=== PATIENT | female | born 2000 | race Caucasian/White ===

== ENCOUNTER 2020-11-26 18:01 | Inpatient (IN) ==
[2020-11-26 18:57] LABS: Bacteria,Urine Occasional /HPF (Few); Bilirubin,Urine Negative (Negative); Blood, Urine Large mg/dL (Negative); Glucose,Urine (UA) Negative (Negative); Ketones,Urine Negative (Negative); Mucus,Urine Occasional /LPF (Occasional); Nitrite,Urine Negative (Negative); Protein,Urine Negative; RBC,Urine 4 /HPF (0-4); Squamous Epithelial Cell,Urine Few /HPF (0-10); Urine Appearance Slightly Hazy (Clear); Urine Color Yellow (Yellow); Urine Urobilinogen < 2.0 EU/DL (0.2-1.0); WBC,Urine 18 /HPF (0-6)
[2020-11-26] MEDS ORDERED: ceFAZolin 1,000 MG in SYRINGE 1 EACH IV ONE (19:45)
[2020-11-26] MEDS ORDERED: LACTATED RINGERS 1,000 ML IV ONE (19:45)
[2020-11-26] MEDS ORDERED: MEPERIDINE 50 MG/1 ML VIAL IV ONE (20:00)
[2020-11-26] MEDS ORDERED: ACETAMINOPHEN 325 MG TABLET PO PRN (21:38)
[2020-11-26] MEDS ORDERED: LACTATED RINGERS 500 ML IV PRN (21:38)
[2020-11-26] MEDS ORDERED: ONDANSETRON 4 MG/2 ML VIAL IV PRN (21:38)
[2020-11-26] MEDS ORDERED: BUTORPHANOL 2 MG/ML VIAL IV PRN (21:38)
[2020-11-26 22:01] LABS: Basophils % 0.3 % (0.0-0.8); Eosinophils % 0.3 % (0.00-10.9); Hematocrit 32.8 VOL% (35.7-47.0); Hemoglobin 10.1 GM/DL (12.0-16.0); Immature Granulocytes % 0.3 %; Immature Granulocytes Absolute 0.02 #; Lymphocytes # 1.7 10*3/uL (1.4-4.0); Lymphocytes % 21.3 % (21.3-54.2); Mean Corpuscular HGB Conc 30.8 GM/DL (32-36); Mean Corpuscular Volume 78.7 FL (87-102); Mean Platelet Volume 11.6 FL (9.6-12.0); Monocytes % 10.2 % (1.7-12.7); Neutrophils % 67.6 % (38.7-73.9); Platelet Count 213 T/CUMM (130-400); Red Blood Count 4.17 MC/CUMM (3.8-5.5); Red Cell Distribution Width 16.4 % (9.3-17.3); White Blood Count 7.9 T/CUMM (4-12)
[2020-11-26 22:22] LABS: Albumin 2.7 G/DL (3.4-5.0); Bilirubin,Total 0.6 MG/DL (0.2-1.0); Calcium 8.5 MG/DL (8.5-10.1); Osmolality,Calculated 271.5 MOS/KG (273-304); Potassium 3.5 MMOL/L (3.5-5.1); Total Protein 7.1 G/DL (6.4-8.2)
[2020-11-27] MEDS: MEPERIDINE 50 MG/1 ML VIAL IV PRN ×2 (00:45→04:02)
[2020-11-27] MEDS: LACTATED RINGERS 1,000 ML IV SCH ×2 (01:05→05:49)
[2020-11-27] MEDS ORDERED: PROMETHAZINE 25 MG/1 ML VIAL IM ONE (03:46)
[2020-11-27] MEDS ORDERED: ePHEDrine 50 MG/ML VIAL IV PRN (03:46)
[2020-11-27] MEDS ORDERED: FAMOTIDINE 20 MG/2 ML VIAL IV ONE (03:46)
[2020-11-27] MEDS ORDERED: ONDANSETRON 4 MG/2 ML VIAL IV ONE (03:46)
[2020-11-27] MEDS ORDERED: NALOXONE 0.4 MG/ML VIAL IV PRN (03:46)
[2020-11-27] MEDS ORDERED: diphenhydrAMINE 50 MG/1 ML VIAL IV PRN ×2 (03:46)
[2020-11-27] MEDS ORDERED: LACTATED RINGERS 1,000 ML IV ONE (03:46)
[2020-11-27] MEDS ORDERED: CITRIC ACID/SODIUM CITRATE 30 ML UDCUP PO ONE (03:46)
[2020-11-27] MEDS ORDERED: hydrOXYzine HCL 25 MG/1 ML VIAL IM PRN (03:46)
[2020-11-27] MEDS ORDERED: fentaNYL 2 MCG/ROPIV 0.2% EPID 100 ML EPIDURAL SCH (04:00)
[2020-11-27 05:24] LABS: Bacteria,Urine Occasional /HPF (Few); Bilirubin,Urine Negative (Negative); Blood, Urine Negative (Negative); Glucose,Urine (UA) Negative (Negative); Ketones,Urine 20 mg/dL (Negative); Mucus,Urine Occasional /LPF (Occasional); Nitrite,Urine Negative (Negative); Protein,Urine Negative; Urine Appearance CLEAR (Clear); Urine Color Straw (Yellow); Urine Specific Gravity 1.006 (1.001-1.035); Urine Urobilinogen < 2.0 EU/DL (0.2-1.0); WBC,Urine <1 /HPF (0-6)
[2020-11-27] MEDS ORDERED: OXYTOCIN/LR 20 UNIT/1,000 ML BAG IV SCH (06:00)
[2020-11-27] MEDS ORDERED: TRANEXAMIC ACID 1,000 MG/10 ML VIAL ONE (07:39)
[2020-11-27] MEDS ORDERED: miSOPROStoL 200 MCG TABLET ONE (07:39)
[2020-11-27] MEDS ORDERED: OXYTOCIN/LR 20 UNIT/1,000 ML BAG IV ONE ×2 (07:40→08:29)
[2020-11-27] MEDS ORDERED: METHYLERGONOVINE 0.2 MG/1 ML AMP ONE (07:40)
[2020-11-27] MEDS ORDERED: CARBOPROST TROMETHAMINE 250 MCG/ML AMP IM ONE (07:40)
[2020-11-27] MEDS ORDERED: SODIUM CHLORIDE 0.9% 0 ML IV ONE (07:41)
[2020-11-27 08:00] LABS: Cord Arterial Blood HCO3 18.9 MMOL/L
[2020-11-27 08:01] LABS: Cord Venous Blood HCO3 22.6 MMOL/L; Cord Venous Blood PCO2 46.1 MMHG; Cord Venous Blood PO2 22.8 MMHG
[2020-11-27] MEDS ORDERED: HYDROCORTISONE 2.5% RECTAL CREAM 30 GM TUBE TOP PRN (08:29)
[2020-11-27] MEDS ORDERED: BISACODYL 10 MG SUPP RECTAL PRN (08:29)
[2020-11-27] MEDS ORDERED: RHO(D) IMMUNE GLOBULIN 300 MCG SYRINGE IM ONE (08:29)
[2020-11-27] MEDS ORDERED: WITCH HAZEL PADS 100/JAR TOP PRN (08:29)
[2020-11-27] MEDS ORDERED: LANOLIN 50% CREAM 0.3 OZ TUBE TOP PRN (08:29)
[2020-11-27] MEDS ORDERED: BENZOCAINE 20%/MENTHOL 0.5% SPRAY 56 GM CAN TOP PRN (08:29)
[2020-11-27] MEDS ORDERED: ONDANSETRON 4 MG/2 ML VIAL IV PRN (08:29)
[2020-11-27] MEDS ORDERED: MEASLES/MUMPS/RUBELLA VACCINE 0.5 ML VIAL SUBCUT ONE (08:29)
[2020-11-27] MEDS ORDERED: DIPH/TET/ACEL PERT BOOSTER VACCINE 0.5 ML VIAL IM ONE (08:29)
[2020-11-27] MEDS ORDERED: ACETAMINOPHEN 325 MG TABLET PO PRN (08:29)
[2020-11-27] MEDS ORDERED: oxyCODONE/ACETAMINOPHEN 5-325 MG TABLET PO PRN (08:29)
[2020-11-27] MEDS: IBUPROFEN 800 MG TABLET PO PRN ×2 (15:31→21:13)
[2020-11-27] MEDS: oxyCODONE/ACETAMINOPHEN 5-325 MG TABLET PO PRN ×2 (15:32→21:14)
[2020-11-27] MEDS: DOCUSATE SODIUM 100 MG CAPSULE PO SCH (21:17)
[2020-11-28 06:21] LABS: Basophils # 0.1 10*3/uL (0.0-0.2); Basophils % 0.5 % (0.0-0.8); Eosinophils # 0.1 10*3/uL (0.0-0.87); Eosinophils % 0.8 % (0.00-10.9); Hematocrit 25.1 VOL% (35.7-47.0); Hemoglobin 7.5 GM/DL (12.0-16.0); Immature Granulocytes % 0.5 %; Immature Granulocytes Absolute 0.05 #; Lymphocytes # 2.3 10*3/uL (1.4-4.0); Lymphocytes % 23.9 % (21.3-54.2); Mean Corpuscular HGB Conc 29.9 GM/DL (32-36); Mean Corpuscular Volume 78.7 FL (87-102); Mean Platelet Volume 12.2 FL (9.6-12.0); Monocytes % 9.4 % (1.7-12.7); Neutrophils % 64.9 % (38.7-73.9); Platelet Count 168 T/CUMM (130-400); Red Blood Count 3.19 MC/CUMM (3.8-5.5); Red Cell Distribution Width 16.7 % (9.3-17.3); White Blood Count 9.6 T/CUMM (4-12)
[2020-11-28] MEDS ORDERED: FERROUS SULFATE 325 MG TABLET PO SCH (09:00)
[2020-11-28] MEDS: IBUPROFEN 800 MG TABLET PO PRN ×2 (09:34→23:49)
[2020-11-28] MEDS: DOCUSATE SODIUM 100 MG CAPSULE PO SCH ×2 (09:34→21:21)
[2020-11-28] MEDS: oxyCODONE/ACETAMINOPHEN 5-325 MG TABLET PO PRN ×2 (09:34→23:48)
[2020-11-28] MEDS: FERROUS SULFATE 325 MG TABLET PO SCH (21:21)
[2020-11-29] MEDS: FERROUS SULFATE 325 MG TABLET PO SCH (08:11)
[2020-11-29] MEDS: DOCUSATE SODIUM 100 MG CAPSULE PO SCH (08:12)
[2020-11-29 11:18] VITALS: BP 111/54
== END 2020-11-29 11:40 | disposition home or self-care (01) | DRG 807 ==
LOC: N.LDOUT 18:01 → N.LD 18:04 → N.OB 11-27 11:00
PROVIDERS: ADMIT Specialist; ATTEND Specialist